=== PATIENT | male | born 1955 | race Caucasian/White ===

== ENCOUNTER 2020-09-21 17:03 | Emergency (ER) | payer OTHER ==
[2020-09-21] MEDS ORDERED: FAMOTIDINE 20 MG/2 ML VIAL IV ONE (19:53)
[2020-09-21] MEDS ORDERED: NA CHLORIDE 0.9% 1,000 ML ONE (19:53)
[2020-09-21] MEDS ORDERED: NA CHLORIDE 0.9% 500 ML ONE (19:53)
--- NOTE | 2020-09-21 20:03 | RAD REPORT ---
EXAM DESCRIPTION: CT - Chest Abd Pelvis Wo Con - 09/21/2020 7:39 pm CLINICAL HISTORY: Cough and abdominal pain COMPARISON: Chest x-ray September 21, 2020 TECHNIQUE: Computed axial tomography of the chest, abdomen and pelvis was obtained. Oral contrast wa s given. IV contrast was not requested. All CT scans are performed using dose optimization technique as appropriate and may include automated exposure control or mA/KV adjustment according to patient size. 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 Lungs are basically clear. No mediastinal or hilar lymphadenopathy is seen. A pleural effusion is not present. Mild right pleural thickening. A pericardial effusion is not seen. A lung consolidation is not present. The lungs are essentially clear. Fatty liver. Splenic granulomata. Adrenals, pancreas and right kidney appear grossly normal. Small low-density mass left kidney nonspecific without IV contrast but probably cyst. There is no evidence of diverticulitis. Small umbilical hernia contains fat IMPRESSION: No acute abnormality chest/abdomen/pelvis
--- NOTE | 2020-09-21 20:03 | RAD REPORT ---
EXAM DESCRIPTION: Manoj Single View09/21/2020 7:33 pm CLINICAL HISTORY: Cough COMPARISON: none FINDINGS: Postsurgical changes of lung transplant. Mild elevation right hemidiaphragm. Lungs appear clear acute infiltrate. The heart is borderline enlarged IMPRESSION: No acute abnormalities displayed
[2020-09-21 20:09] LABS: Urine Blood Trace-lysed (Negative); Urine Glucose Negative (Negative); Urine Protein 3+ (Negative); Urine Specific Gravity >=1.030 (1.005-1.030); Urine pH 5.5 (5.0-7.0)
[2020-09-21 20:12] LABS: Absolute Lymphocytes (CBC) 0.6 K/uL (0.7-4.9); Basophils % 0.3 % (0-1.3); Hematocrit 26.3 % (39.6-49.0); MPV 9.1 fL (7.6-11.3); RBC Red Blood Cell Count 2.76 M/uL (4.33-5.43)
[2020-09-21 20:30] LABS: Protime INR 1.08
[2020-09-21 20:33] LABS: ALT/SGPT 23 U/L (12-78); AST/SGOT 30 U/L (15-37); Albumin 2.5 g/dL (3.4-5.0); Alkaline Phosphatase 78 U/L (45-117); BUN Blood Urea Nitrogen 75 mg/dL (7-18); Bicarbonate 21 mmol/L (21-32); Bilirubin Direct 0.2 mg/dL (0-0.2); Bilirubin Total 0.5 mg/dL (0.2-1.0); Glucose Level 137 mg/dL (74-106); Lipase 280 U/L (73-393); NT PRO-BNP 9252 pg/mL (<125); Potassium 4.5 mmol/L (3.5-5.1); Protein, Total 6.8 g/dL (6.4-8.2); Sodium Level 134 mmol/L (136-145); Troponin (Emerg Dept Use Only) < 0.02 ng/mL (0.0-0.045)
--- NOTE | 2020-09-21 20:59 | ER ---
Nurse's Notes [facility] Name: Blair Kim Age: 64 yrs Sex: Male : 1955 Arrival Date: 09/21/2020 Time: 17:04 Bed 15 Private MD: Diagnosis: Syncope and collapse Presentation: 09/21 17:13 Chief complaint: Patient states: i did have pneumonia. i am a double lung transplant. tw2 the fluid and the left lung has been there ever since the transplant. after about a week they figured out i had h.pylori infection. and also i cant walk very far without my legs just going noodles on me Spouse and/or significant other states: he got of the hospital 08/27/20, he put on pulse ox and he noticed low o2 and couldn't breathe well. they sent him home with lots of antibiotics. he has been weak for a long time. we have been fishing today and he passed out. he was sitting down. he just slumped over. Coronavirus screen: At this time, the client does not indicate any symptoms associated with coronavirus-19. Ebola Screen: Patient denies travel to an Ebola-affected area in the 21 days before illness onset. Initial Sepsis Screen: Does the patient meet any 2 criteria? No. Patient's initial sepsis screen is negative. Does the patient have a suspected source of infection? No. Patient's initial sepsis screen is negative. Risk Assessment: Do you want to hurt yourself or someone else? Patient reports no desire to harm self or others. Onset of symptoms was September 21, 2020. 17:13 Method Of Arrival: Wheelchair tw2 17:13 Acuity: REBEKA 2 tw2 Triage Assessment: 17:23 General: Appears in no apparent distress. well groomed, Behavior is calm, cooperative, tw2 appropriate for age. Pain: Denies pain. Historical: - Allergies: 17:23 Sulfa (Sulfonamide Antibiotics); tw2 17:23 Keflex; tw2 17:23 Liver; tw2 - Home Meds: 17:23 tacrolimus oral 6 mg am, 5 mg pm oral for Prevention of Lung Transplant Rejection tw2 [Active]; prednisone 5 mg Oral tab 1 tab once daily [Active]; flecainide 100 mg oral tab 1 tab every 12 hours [Active]; metoprolol tartrate 25 mg Oral tab 1 tab 2 times per day [Active]; losartan oral oral [Active]; torsemide oral oral [Active]; 18:51 nifedipine 30 mg Oral tr24 1 tab once daily [Active]; sertraline 100 mg oral tab 1 tab tw2 once daily [Active]; - PMHx: 17:23 prostrate cancer (raditation stopped 1 yr ago); COPD; Hypertension; Atrial Fib; tw2 - PSHx: 17:23 Appendectomy; double lung transplant; Tonsillectomy; Adenoids; rhinoplasty; right leg tw2 surgery; - Immunization history:: Adult Immunizations. - Social history:: Smoking status: . - Family history:: not pertinent. Screenin:50 Abuse screen: Denies threats or abuse. Nutritional screening: No deficits noted. tw2 Tuberculosis screening: No symptoms or risk factors identified. Fall Risk Secondary diagnosis (15 points) impaired mobility. Assessment: 18:41 Reassessment: bernadine at bedside at this time. em 20:10 Reassessment:. General: Appears in no apparent distress. Behavior is calm, cooperative, jm8 appropriate for age. Pain: Denies pain. 20:10 Neuro: Reports a syncopal episode weakness since today. Cardiovascular: No deficits jm8 noted. Respiratory: Reports shortness of breath Airway is patent Trachea midline Respiratory effort is even, unlabored. GI: No deficits noted. : No deficits noted. EENT: No deficits noted. Derm: No deficits noted. Musculoskeletal: No deficits noted. 22:03 Reassessment: Patient is alert, oriented x 3, equal unlabored respirations, skin bb warm/dry/pink. pt states he is feeling better. Pt and spouse verbalized understanding of and agree to plan of care discharge instructions given pt assisted to exit by this RN accompanied by family. Vital Signs: 17:13 BP 125 / 80; Pulse 53; Resp 17; Temp 97.9(TE); Pulse Ox 100% on R/A; Weight 92.99 kg tw2 (R); Height 6 ft. 0 in. (182.88 cm) (R); Pain 0/10; 18:25 Pulse 45; Resp 16; Pulse Ox 100% on R/A; tw2 20:00 BP 154 / 78; Pulse 57; Resp 16; Pulse Ox 99% on R/A; jm8 22:03 BP 152 / 77; Pulse 51; Resp 14 S; Temp 97.7(O); Pulse Ox 100% on R/A; bb 17:13 Body Mass Index 27.80 (92.99 kg, 182.88 cm) tw2 18:25 NAD, pt sitting in w/c next to , states "i am a little lexa but the metoprolol tw2 does that", pt laughs and says "i am thinking about going AMA and going home" then laughs and states "oh he is playing" ED Course: 17:04 Patient arrived in ED. as 17:17 Triage completed. tw2 17:23 Arm band placed on. tw2 18:31 Florentin Jaramillo MD is Attending Physician. luz maria 18:49 Placed in gown. Bed in low position. Call light in reach. Adult w/ patient. Cardiac tw2 monitor on. Pulse ox on. NIBP on. Warm blanket given. 18:50 EKG completed in triage. Results shown to MD. tw2 19:33 XRAY Chest (1 view) In Process Unspecified. EDMS 19:39 CT Chest Abdomen Pelvis W/O Contrast In Process Unspecified. EDMS 20:11 No provider procedures requiring assistance completed. Inserted saline lock: 20 gauge enrique in right antecubital area, using aseptic technique. 22:04 IV discontinued, intact, bleeding controlled, No redness/swelling at site. Pressure bb dressing applied. Administered Medications: 19:58 Drug: Pepcid (famotidine) 20 mg Route: IVP; Site: right antecubital; jm8 19:59 Drug: NS 0.9% 500 ml Route: IV; Rate: bolus; Site: right antecubital; jm8 19:59 Drug: NS 0.9% 1000 ml Route: IV; Rate: 125 ml/hr; Site: right antecubital; jm8 Outcome: 20:58 Discharge ordered by . deacon 22:04 Discharged to home via wheelchair, with family. bb 22:04 Condition: stable 22:04 Discharge instructions given to patient, family, Instructed on discharge instructions, follow up and referral plans. Demonstrated understanding of instructions, follow-up care. 22:05 Patient left the ED. bb Signatures: Dispatcher [employer] EDMS Florentin Jaramillo MD MD cha Mickail, Joel, PA PA jmm Estes, Leif, RN RN em Carito Boss Brenda, RN RN bb Coco Perez, RN RN tw2 Marquis Hansen RN RN jm8
--- NOTE | 2020-09-21 20:59 | EDPHYS ---
Physician Documentation [facility] Name: Blair Kim Age: 64 yrs Sex: Male : 1955 Arrival Date: 09/21/2020 Time: 17:04 Bed 15 Private MD: LEVI Physician Florentin Jaramillo HPI: 09/21 19:04 This 64 yrs old Male presents to ER via Wheelchair with complaints of luz maria dehydration. 19:04 The patient presents with abdominal pain in the upper abdomen, abdominal distention in luz maria the upper abdomen, in the lower abdomen. Onset: The symptoms/episode began/occurred 1 day(s) ago. was fishing, got week, from [place], hx double lung transplant. Onset: The symptoms/episode began/occurred just prior to arrival, today. The symptoms do not radiate. Associated signs and symptoms: Pertinent positives: nausea. The symptoms are described as crampy. Modifying factors: The symptoms are alleviated by nothing, the symptoms are aggravated by nothing. Severity of pain: At its worst the pain was mild in the emergency department the pain is unchanged. Severity of symptoms: At their worst the symptoms were mild in the emergency department the symptoms are unchanged. Historical: - Allergies: 17:23 Sulfa (Sulfonamide Antibiotics); tw2 17:23 Keflex; tw2 17:23 Liver; tw2 - Home Meds: 17:23 tacrolimus oral 6 mg am, 5 mg pm oral for Prevention of Lung Transplant Rejection tw2 [Active]; prednisone 5 mg Oral tab 1 tab once daily [Active]; flecainide 100 mg oral tab 1 tab every 12 hours [Active]; metoprolol tartrate 25 mg Oral tab 1 tab 2 times per day [Active]; losartan oral oral [Active]; torsemide oral oral [Active]; 18:51 nifedipine 30 mg Oral tr24 1 tab once daily [Active]; sertraline 100 mg oral tab 1 tab tw2 once daily [Active]; - PMHx: 17:23 prostrate cancer (raditation stopped 1 yr ago); COPD; Hypertension; Atrial Fib; tw2 - PSHx: 17:23 Appendectomy; double lung transplant; Tonsillectomy; Adenoids; rhinoplasty; right leg tw2 surgery; - Immunization history:: Adult Immunizations. - Social history:: Smoking status: . - Family history:: not pertinent. ROS: 19:04 Constitutional: Negative for fever, chills, and weight loss, Eyes: Negative for injury, luz maria pain, redness, and discharge, ENT: Negative for injury, pain, and discharge, Neck: Negative for injury, pain, and swelling, Cardiovascular: Negative for chest pain, palpitations, and edema, Respiratory: Negative for shortness of breath, cough, wheezing, and pleuritic chest pain, Back: Negative for injury and pain, : Negative for injury, bleeding, discharge, and swelling, MS/Extremity: Negative for injury and deformity, Skin: Negative for injury, rash, and discoloration, Neuro: Negative for headache, weakness, numbness, tingling, and seizure, Psych: Negative for depression, anxiety, suicide ideation, homicidal ideation, and hallucinations, Allergy/Immunology: Negative for hives, rash, and allergies, Endocrine: Negative for neck swelling, polydipsia, polyuria, polyphagia, and marked weight changes, Hematologic/Lymphatic: Negative for swollen nodes, abnormal bleeding, and unusual bruising. 19:04 Abdomen/GI: Positive for abdominal pain, abdominal distension, of the right upper quadrant. Exam: 19:04 Constitutional: This is a well developed, well nourished patient who is awake, alert, luz maria and in no acute distress. Head/Face: Normocephalic, atraumatic. Eyes: Pupils equal round and reactive to light, extra-ocular motions intact. Lids and lashes normal. Conjunctiva and sclera are non-icteric and not injected. Cornea within normal limits. Periorbital areas with no swelling, redness, or edema. ENT: Nares patent. No nasal discharge, no septal abnormalities noted. Tympanic membranes are normal and external auditory canals are clear. Oropharynx with no redness, swelling, or masses, exudates, or evidence of obstruction, uvula midline. Mucous membranes moist. Neck: Trachea midline, no thyromegaly or masses palpated, and no cervical lymphadenopathy. Supple, full range of motion without nuchal rigidity, or vertebral point tenderness. No Meningismus. Chest/axilla: Normal chest wall appearance and motion. Nontender with no deformity. No lesions are appreciated. Cardiovascular: Regular rate and rhythm with a normal S1 and S2. No gallops, murmurs, or rubs. Normal PMI, no JVD. No pulse deficits. Respiratory: Lungs have equal breath sounds bilaterally, clear to auscultation and percussion. No rales, rhonchi or wheezes noted. No increased work of breathing, no retractions or nasal flaring. Back: No spinal tenderness. No costovertebral tenderness. Full range of motion. Male : Normal genitalia with no discharge or lesions. Skin: Warm, dry with normal turgor. Normal color with no rashes, no lesions, and no evidence of cellulitis. MS/ Extremity: Pulses equal, no cyanosis. Neurovascular intact. Full, normal range of motion. Neuro: Awake and alert, GCS 15, oriented to person, place, time, and situation. Cranial nerves II-XII grossly intact. Motor strength 5/5 in all extremities. Sensory grossly intact. Cerebellar exam normal. Normal gait. Psych: Awake, alert, with orientation to person, place and time. Behavior, mood, and affect are within normal limits. 19:04 Abdomen/GI: Inspection: distension, Bowel sounds: normal, Palpation: mild abdominal tenderness, in the right upper quadrant, Liver: no appreciated palpable abnormalities, Hernia: not appreciated. 19:16 ECG was reviewed by the Attending Physician. [facility] Vital Signs: 17:13 BP 125 / 80; Pulse 53; Resp 17; Temp 97.9(TE); Pulse Ox 100% on R/A; Weight 92.99 kg tw2 (R); Height 6 ft. 0 in. (182.88 cm) (R); Pain 0/10; 18:25 Pulse 45; Resp 16; Pulse Ox 100% on R/A; tw2 20:00 BP 154 / 78; Pulse 57; Resp 16; Pulse Ox 99% on R/A; jm8 22:03 BP 152 / 77; Pulse 51; Resp 14 S; Temp 97.7(O); Pulse Ox 100% on R/A; bb 17:13 Body Mass Index 27.80 (92.99 kg, 182.88 cm) tw2 18:25 NAD, pt sitting in w/c next to , states "i am a little lexa but the metoprolol tw2 does that", pt laughs and says "i am thinking about going AMA and going home" then laughs and states "oh he is playing" MDM: 18:31 Patient medically screened. luz maria 19:09 Differential Diagnosis sepsis. Differential diagnosis: diverticulitis, gastritis, luz maria non-specific abd pain, pancreatitis, Peptic Ulcer Disease, urinary tract infection. Data reviewed: vital signs, nurses notes, lab test result(s), EKG, radiologic studies, CT scan, plain films. Data interpreted: pvc monitor: rate is 45 beats/min, rhythm is regular, Pulse oximetry: on room air is 100 %. Test interpretation: by ED physician or midlevel provider: ECG, plain radiologic studies. Counseling: I had a detailed discussion with the patient and/or guardian regarding: the historical points, exam findings, and any diagnostic results supporting the discharge/admit diagnosis, lab results, radiology results. 19:14 ED course: aditi wells to dispo pt, check labs, studies, accordingly. luz maria 20:58 Refusal of service: The patient/guardian displays adequate decision making capability jm and despite a detailed discussion of alternatives, benefits, risks, and consequences refuses: Admission to the hospital for further work-up and treatment. 09/21 19:14 Order name: Basic Metabolic Panel [facility] 09/21 19:14 Order name: CBC with Diff [facility] 09/21 19:14 Order name: LFT's [facility] 09/21 19:14 Order name: Magnesium [facility] 09/21 19:14 Order name: NT PRO-BNP [facility] 09/21 19:14 Order name: PT-INR [facility] 09/21 19:14 Order name: Troponin (emerg Dept Use Only); Complete Time: 20:45 [facility] 09/21 19:14 Order name: Lipase; Complete Time: 20:45 [facility] 09/21 19:14 Order name: Urine Culture [facility] 09/21 19:14 Order name: Blood Culture Adult (2) [facility] 09/21 19:14 Order name: Lactate; Complete Time: 20:30 [facility] 09/21 19:15 Order name: Basic Metabolic Panel; Complete Time: 20:45 EDMS 09/21 19:14 Order name: XRAY Chest (1 view); Complete Time: 20:06 [facility] 09/21 19:14 Order name: EKG; Complete Time: 19:15 [facility] 09/21 19:14 Order name: Cardiac monitoring; Complete Time: 19:59 [facility] 09/21 19:14 Order name: EKG - Nurse/Tech; Complete Time: 19:59 [facility] 09/21 19:14 Order name: CT Chest Abdomen Pelvis W/O Contrast; Complete Time: 20:06 [facility] 09/21 19:15 Order name: CBC with Automated Diff [facility]OR 09/21 19:15 Order name: Liver (Hepatic) Function; Complete Time: 20:45 [facility] 09/21 19:15 Order name: Magnesium; Complete Time: 20:45 [facility] 09/21 19:15 Order name: NT PRO-BNP; Complete Time: 20:45 [facility] 09/21 19:15 Order name: Protime (+INR); Complete Time: 20:45 [facility] 09/21 20:08 Order name: Urine Dipstick-Ancillary; Complete Time: 20:30 [facility] 09/21 21:10 Order name: CBC Smear Scan [facility] 09/21 21:22 Order name: COVID-19/FLU A+B [facility] 09/21 19:14 Order name: IV Saline Lock; Complete Time: 20:00 [facility] 09/21 19:14 Order name: Labs collected and sent; Complete Time: 20:00 [facility] 09/21 19:14 Order name: O2 Per Protocol; Complete Time: 20:00 [facility] 09/21 19:14 Order name: O2 Sat Monitoring; Complete Time: 19:59 [facility] 09/21 19:14 Order name: Urine Dipstick-Ancillary (obtain specimen); Complete Time: 20:09 [facility] EC:16 Rate is 53 beats/min. Rhythm is regular. QRS Wall[place] is Normal. DE interval is prolonged [facility] at 244 msec. QRS interval is normal. QT interval is normal. No Q waves. T waves are Normal. No ST changes noted. Clinical impression: 1st degree heart block and Sinus bradycardia. Interpreted by me. Reviewed by me. Administered Medications: 19:58 Drug: Pepcid (famotidine) 20 mg Route: IVP; Site: right antecubital; jm8 19:59 Drug: NS 0.9% 500 ml Route: IV; Rate: bolus; Site: right antecubital; jm8 19:59 Drug: NS 0.9% 1000 ml Route: IV; Rate: 125 ml/hr; Site: right antecubital; jm8 Disposition: 09/22 11:31 Co-signature as Attending Physician, Florentin ORTIZ I agree with the assessment and [facility] plan of care. Disposition: 09/21/20 20:58 Discharged to Home. Impression: Syncope and collapse. - Condition is Stable. - Discharge Instructions: Syncope. - Medication Reconciliation Form, Thank You Letter, Antibiotic Education, Prescription Opioid Use form. - Follow up: Private Physician; When: Tomorrow; Reason: Recheck today's complaints, Continuance of care, Re-evaluation by your physician. Signatures: Dispatcher [employer] EDOR Florentin Jaramillo MD MD cha Mickail, Joel, PA PA jmm Ballard, Brenda, RN RN bb Coco Perez RN RN tw2 Marquis Hansen RN RN jm8 Corrections: (The following items were deleted from the chart) 09/21 20:35 19:15 Influenza Screen (A \\T\\ B)+BA.LAB.BRZ ordered. EDOR EDMS 20:35 19:15 CORONAVIRUS+MR.LAB.BRZ ordered. EDOR EDMS 22:05 20:58 09/21/2020 20:58 Discharged to Home. Impression: Syncope and collapse. Condition bb is Stable. Forms are Medication Reconciliation Form, Thank You Letter, Antibiotic Education, Prescription Opioid Use. Follow up: Private Physician; When: Tomorrow; Reason: Recheck today's complaints, Continuance of care, Re-evaluation by your physician. deacon
[2020-09-21 21:10] LABS: Blood Morphology Comment NOT SEEN (NOT SEEN); Platelet Estimate DECR; White Blood Cell Scan OK (OK)
[2020-09-21 21:22] LABS: SARS-COV-2 RT PCR NEGATIVE (NEGATIVE)
[2020-09-21 22:33] VITALS: O2SAT 100
[2020-09-21 22:35] VITALS: BP 152/77; TEMP 97.7
--- NOTE | 2020-09-23 07:23 | EKG ---
Test Date: 2020-09-21 Test Time: 18:45:17 Bread Stacker: SHAYAN MEASUREMENT RESULTS: Intervals: Rate: 53 WI: 244 QRSD: 130 QT: 516 QTc: 484 [place]: P: 71 WI: 244 QRS: -1 T: 51 INTERPRETIVE STATEMENTS: Sinus bradycardia with 1st degree AV block with premature atrial complexes Nonspecific intraventricular block Abnormal ECG No previous ECG available for comparison Electronically Signed On 09-23-20 07:18:30 CDT by Paul Oliva
== END 2020-09-21 22:05 | disposition home or self-care (01) ==
LOC: ER 17:03
DX: R55 Syncope and collapse (principal); R14.0 Abdominal distension (gaseous); I10 Essential (primary) hypertension; I48.91 Unspecified atrial fibrillation; Z20.822 Contact with and (suspected) exposure to COVID-19; Z94.2 Lung transplant status; Z88.2 Allergy status to sulfonamides; Z88.8 Allergy status to other drugs, medicaments and biological substances; Z91.018 Allergy to other foods
CPT/HCPCS: 87040 ×2; 87088; 85025; 87086; 80048; 36415; 83735; 85610; 80076; 83605; 81003; 84484; 83690; 83880; 0240U; 71250; 74176; 71045; J7040; J7030; 93005; 96374; 99284